=== PATIENT | female | born 1990 | race Caucasian/White ===

== ENCOUNTER → 2016-12-14 | Outpatient (CLI) | payer OTHER ==
[~2016-12-14] MED LIST: HYDR1INJ12; PRENTAB26 PO
[2016-12-14 18:11] LABS: URINE APPEARANCE CLEAR (CLEAR); URINE BILIRUBIN NEG (NEG); URINE COLOR YELLOW; URINE EPITHELIAL CELL AUTO >30 /lpf (0-5); URINE NITRITE NEG (NEG); URINE PH 6.5 (4.5-7.5); URINE SPECIFIC GRAVITY 1.007 (1.000-1.030); UROBILINOGEN NEG (NEG)
[2016-12-14 18:18] LABS: MANUAL MICROSCOPIC REQUIRED? NO; REVIEW REQ? YES
== END | disposition home or self-care (01) ==
LOC: C.LABSPEC 17:42
PROVIDERS: ATTEND Obstetrics & Gynecology
DX: O09.219 Supervision of pregnancy with history of pre-term labor, unspecified trimester (principal); Z3A.00 Weeks of gestation of pregnancy not specified

== ENCOUNTER → 2016-12-21 | Outpatient (CLI) | payer OTHER ==
[2016-12-21 16:56] LABS: BASO % 0.3 %; BASO ABS # 0.02 K/uL (0-0.2); COMPLETE YES; EOS % 1.6 %; HEMATOCRIT 36.9 % (37-47); IG% 0.3 %; LYMPH % 27.7 %; LYMPH ABS # 2.03 K/uL (1.2-3.4); MEAN CORPUSCULAR HGB CONC 32.5 g/dl (32-36); MEAN PLATELET VOLUME 11.6 fL (7.4-10.4); NEUT % 64.1 %; PLATELET COUNT 189 K/uL (130-400); RED BLOOD COUNT 4.29 M/uL (4.2-5.4); WHITE BLOOD COUNT 7.32 K/uL (4.8-10.8)
[2016-12-24 23:55] LABS: CHLAMYDIA TRACH RNA*** NOT DETECTED (NOT DETECTED); GC (NEIS GONORRHOEAE)RNA** NOT DETECTED (NOT DETECTED)
== END | disposition home or self-care (01) ==
LOC: C.LAB1850 15:21
PROVIDERS: ATTEND Obstetrics & Gynecology
DX: O09.211 Supervision of pregnancy with history of pre-term labor, first trimester (principal); Z3A.00 Weeks of gestation of pregnancy not specified

== ENCOUNTER → 2016-12-21 | Outpatient (CLI) | payer OTHER | END | disposition home or self-care (01) | LOC: C.PAPS 12:39 | PROVIDERS: ATTEND Obstetrics & Gynecology | DX: Z12.4 Encounter for screening for malignant neoplasm of cervix (principal); R87.616 Satisfactory cervical smear but lacking transformation zone ==

== ENCOUNTER → 2017-02-15 | Outpatient (CLI) | payer OTHER ==
[2017-02-15 13:30] LABS: GTGD 50 Grams
== END | disposition home or self-care (01) ==
LOC: C.LAB1850 11:05
PROVIDERS: ATTEND Obstetrics & Gynecology
DX: Z34.82 Encounter for supervision of other normal pregnancy, second trimester (principal)

== ENCOUNTER 2017-04-17 13:05 | Outpatient (CLI) | payer OTHER ==
[2017-04-17 14:49] LABS: URINE APPEARANCE CLEAR (CLEAR); URINE BILIRUBIN NEG (NEG); URINE COLOR YELLOW; URINE NITRITE NEG (NEG); URINE PH 6.5 (4.5-7.5); URINE SPECIFIC GRAVITY 1.017 (1.000-1.030); UROBILINOGEN NEG (NEG); ZZUR CULT IF INDIC CLEAN CATCH NO
[2017-04-17 14:51] LABS: MANUAL MICROSCOPIC REQUIRED? NO; REVIEW REQ? NO
== END 2017-04-17 15:10 | disposition home or self-care (01) ==
LOC: C.OPB 13:05 → C.LD 13:05 → C.OPB 15:10
PROVIDERS: ATTEND Obstetrics & Gynecology
DX: O99.89 Other specified diseases and conditions complicating pregnancy, childbirth and the puerperium (principal); R39.89 Other symptoms and signs involving the genitourinary system; Z3A.24 24 weeks gestation of pregnancy

== ENCOUNTER → 2017-05-07 | Outpatient (CLI) | payer OTHER ==
[2017-05-07 12:25] LABS: HEMATOCRIT 31.9 % (37-47)
[2017-05-07 13:14] LABS: GTGD 50 Grams
== END | disposition home or self-care (01) ==
LOC: C.LAB1850 10:55
PROVIDERS: ATTEND Obstetrics & Gynecology
DX: O09.212 Supervision of pregnancy with history of pre-term labor, second trimester (principal)

== ENCOUNTER → 2017-05-07 | Outpatient (CLI) | payer OTHER ==
[2017-05-07 14:54] LABS: URINE APPEARANCE CLEAR (CLEAR); URINE BILIRUBIN NEG (NEG); URINE COLOR YELLOW; URINE EPITHELIAL CELL AUTO 20-30 /lpf (0-5); URINE NITRITE NEG (NEG); UROBILINOGEN NEG (NEG)
[2017-05-07 15:10] LABS: MANUAL MICROSCOPIC REQUIRED? NO; REVIEW REQ? NO
== END | disposition home or self-care (01) ==
LOC: C.LABSPEC 14:10
PROVIDERS: ATTEND Obstetrics & Gynecology
DX: O09.212 Supervision of pregnancy with history of pre-term labor, second trimester (principal)

== ENCOUNTER 2017-06-29 10:09 | Outpatient (CLI) | payer OTHER ==
[2017-06-29] MEDS ORDERED: HYDR1INJ12 (11:08)
[2017-06-29] MEDS ORDERED: PRENTAB26 PO (11:08)
== END 2017-06-29 11:05 | disposition home or self-care (01) ==
LOC: C.OPB 10:09 → C.LD 10:09 → C.OPB 11:05
PROVIDERS: ATTEND Obstetrics & Gynecology
DX: O99.89 Other specified diseases and conditions complicating pregnancy, childbirth and the puerperium (principal); M54.9 Dorsalgia, unspecified; Z3A.34 34 weeks gestation of pregnancy

== ENCOUNTER 2017-07-22 10:10 | Outpatient (CLI) | payer OTHER ==
[~2017-07-22] VITALS: Ht 149.9 cm; Wt 67.2 kg
[2017-07-22 11:04] VITALS: Ht 149.9 cm; Wt 67.2 kg
== END 2017-07-22 12:14 | disposition home or self-care (01) ==
LOC: C.OPB 10:10 → C.LD 10:10 → C.OPB 12:14 → EDSTATUS 08-04 10:11
PROVIDERS: ATTEND Obstetrics & Gynecology
DX: Z34.83 Encounter for supervision of other normal pregnancy, third trimester (principal); Z3A.38 38 weeks gestation of pregnancy

== ENCOUNTER 2017-07-24 21:28 | Inpatient (IN) | payer OTHER ==
[~2017-07-24] VITALS: Ht 152.4 cm; Wt 78.5 kg
[2017-07-25] MEDS ORDERED: LACTATED RINGER'S 1000ML 1,000 ML IV PRN (00:31)
[2017-07-25] MEDS ORDERED: LACTATED RINGER'S 1000ML 1,000 ML IV SCH ×2 (00:31→05:55)
[2017-07-25 01:02] LABS: HEMATOCRIT 31.2 % (37-47); MEAN CELL VOLUME 83.2 fL (80-100); MEAN CORPUSCULAR HEMOGLOBIN 26.9 pg (25-34); MEAN CORPUSCULAR HGB CONC 32.4 g/dl (32-36); MEAN PLATELET VOLUME 10.9 fL (7.4-10.4); PLATELET COUNT 197 K/uL (130-400); RED BLOOD COUNT 3.75 M/uL (4.2-5.4); WHITE BLOOD COUNT 16.46 K/uL (4.8-10.8)
[2017-07-25] MEDS ORDERED: EpHEDrine SULFATE INJ 50 MG/ML AMP ONE (01:57)
[2017-07-25] MEDS ORDERED: BUPIVACAINE 0.25% 30 ML VIAL ONE (01:57)
[2017-07-25] MEDS ORDERED: FENTANYL 2MCG/ML ROPIV 1.25MG/ML 100ML BAG EPI ONE (01:58)
[2017-07-25] MEDS ORDERED: FENTANYL CITRATE INJ 50 MCG/1 ML 2 ML VIAL ONE (01:58)
[2017-07-25] MEDS ORDERED: LACTATED RINGER'S 1000ML 500 ML IV PRN (02:27)
[2017-07-25] MEDS ORDERED: NALOXONE HCL INJ 1 MG in SODIUM CHLORIDE 0.9% 1000ML 1,000 ML IV PRN ×4 (02:27)
[2017-07-25] MEDS ORDERED: METOCLOPRAMIDE HCL INJ 20 MG in SODIUM CHLORIDE 0.9% 50ML 50 ML IV PRN (02:30)
[2017-07-25] MEDS ORDERED: FENTANYL 2MCG/ML ROPIV 1.25MG/ML 100ML BAG EPI PRN (02:30)
[2017-07-25] MEDS ORDERED: PROMETHAZINE HCL INJ 25 MG in SODIUM CHLORIDE 0.9% 50ML 50 ML IV PRN (02:30)
[2017-07-25] MEDS ORDERED: ONDANSETRON INJ 2 MG/ML 2 ML VIAL IV PRN (02:30)
[2017-07-25] MEDS ORDERED: NALBUPHINE HCL INJ 10 MG/ML AMP IV PRN (02:30)
[2017-07-25] MEDS ORDERED: EpHEDrine SULFATE INJ 50 MG/ML AMP IV PRN (02:30)
[2017-07-25] MEDS ORDERED: DiphenhydrAMINE HCL 50 MG/ML VIAL IV PRN (02:30)
[2017-07-25] MEDS ORDERED: NALOXONE HCL INJ 0.4 MG/1 ML VIAL/CARP IV PRN (02:30)
[2017-07-25] MEDS ORDERED: OXYTOCIN 30 UNITS/500ML NSS IV ONE (05:35)
[2017-07-25] MEDS ORDERED: SUPERCREAM 0.870 % 15GM JAR EXT PRN (06:00)
[2017-07-25] MEDS ORDERED: LANOLIN OINT EXT PRN ×2 (06:00)
[2017-07-25] MEDS ORDERED: OXYTOCIN 30 UNITS/500ML NSS IV PRN (06:00)
[2017-07-25] MEDS ORDERED: DIPHTHERIA/TETANUS/PERTUSSIS 0.5 ML SYR/VIAL IM. ONE (06:00)
[2017-07-25] MEDS ORDERED: HYDROCORTISONE ACETATE 25 MG SUPP PR PRN (06:00)
[2017-07-25] MEDS ORDERED: OXYCODONE/ACETAMINOPHEN 5-325 TAB PO PRN (06:00)
[2017-07-25] MEDS ORDERED: BENZOCAINE 20% AER SPR 82.5 GM CAN EXT PRN (06:00)
--- NOTE | 2017-07-25 07:49 | Anesthesia Procedure Note ---
Anesthesia Epidural Removal Nt Date & Time Jul 25, 2017 at 07:48 Vital Signs Pain Intensity: 10.0 Notes Mental Status: alert / awake / arousable, participated in evaluation Nausea / Vomiting: adequately controlled Pain: adequately controlled Airway Patency, RR, SpO2: stable & adequate BP & HR: stable & adequate Hydration State: stable & adequate Neuraxial Anesthesia: was administered Anesthetic Complications: no major complications apparent, pt satisfied with anesthetic care Epidural: removed without complications, with tip intact
[2017-07-25] MEDS: ACETAMINOPHEN 325 MG TAB PO PRN ×3 (07:51→19:57)
[2017-07-25] MEDS: DOCUSATE SODIUM 100 MG CAP PO SCH ×2 (07:51→20:35)
[2017-07-25] MEDS: PRENATAL VITAMIN TAB PO SCH (07:51)
[2017-07-25 08:30] VITALS: BP 113/63; PULSE 83; TEMP 36.7
[2017-07-25 12:41] VITALS: BP 109/69; PULSE 63; TEMP 36.9
[2017-07-25] MEDS: IBUPROFEN 600 MG TAB PO PRN (15:27)
[2017-07-25 15:29] VITALS: BP 109/69; PULSE 63; TEMP 36.9
[2017-07-25 20:05] VITALS: BP 114/74; PULSE 76; TEMP 36.4
[2017-07-25 23:30] VITALS: BP 124/72; PULSE 87; TEMP 36.7
[2017-07-26 04:30] VITALS: BP 115/59; PULSE 80; TEMP 36.6
[2017-07-26 06:49] LABS: HEMATOCRIT 31.7 % (37-47)
--- NOTE | 2017-07-26 07:22 | Progress Note ---
Subjective Jul 26, 2017. Subjective conversation w/ patient, physical exam, chart review, lab review Ambulation: ambulating normally Voiding: no voiding problems Passing Gas: Yes Diet Tolerance: Regular Diet Lochia: Moderate Feeding Type: Breast Feeding Pain: controlled Review of Systems Respiratory: No shortness of breath Cardiac: No chest pain Abdomen: No nausea, No vomiting Female : No dysuria Objective Vital Signs Date Time Temp Pulse Resp B/P (MAP) Pulse Ox O2 Delivery O2 Flow Rate FiO2 07/26/17 04:30 36.6 80 18 115/59 (77) Room Air 07/25/17 23:30 36.7 87 18 124/72 (89) Room Air 07/25/17 23:30 Room Air 07/25/17 20:05 Room Air 07/25/17 20:05 36.4 76 18 114/74 (87) Room Air 07/25/17 15:29 36.9 63 16 109/69 (82) Room Air 07/25/17 12:41 36.9 63 16 109/69 (82) Room Air 07/25/17 08:30 36.7 83 20 113/63 Physical Exam General Appearance: WELL-APPEARING, WD/WN, NO APPARENT DISTRESS Respiratory/Chest: lungs clear, normal breath sounds, no respiratory distress Cardiovascular: regular rate, rhythm, no gallop Abdomen: normal bowel sounds, soft Fundus: Firm, Tender (appropriately tender), Relation to Umbilicus (1 below U) Extremities: non-tender, normal inspection Laboratory Results Last 24 Hours Test 07/26/17 06:34 Hemoglobin 10.3 g/dL Hematocrit 31.7 % Assessment and Plan Post- Day#: 1 Continue Routine Care: Vital signs reviewed and wnl. Hgb reviewed 10.1 on admission, (10.3 today). Blood type A -, GBS -, RI. Pt doing well clinically. Encourage ambulation, . Resume regular diet. Control pain with motrin/tylenol. Monitor lochia. Continue routine post care. Baby will get tongue tie clipped tomorrow, anticipate discharge tomorrow. SILVIA DHILLON FMR PGY 1. Resident Physician Supervision Note: I interviewed and examined the patient. Discussed with Dr. Dhillon and agree with findings and plan as documented in the note. Any exceptions or clarifications are listed here: [None] Documented By: Glen Jeronimo Resident Tracking Resident Involvement: Resident Care Provided Care Provided: OB Delivery
[2017-07-26] MEDS: PRENATAL VITAMIN TAB PO SCH (07:46)
[2017-07-26] MEDS: DOCUSATE SODIUM 100 MG CAP PO SCH ×2 (07:46→20:00)
[2017-07-26] MEDS: ACETAMINOPHEN 325 MG TAB PO PRN ×2 (07:48→16:27)
[2017-07-26 08:00] VITALS: BP 113/77; PULSE 83; TEMP 36.7
[2017-07-26] MEDS: IBUPROFEN 600 MG TAB PO PRN (12:11)
[2017-07-26 16:50] VITALS: BP 125/68; PULSE 82; TEMP 36.8
[2017-07-27 00:10] VITALS: BP 118/59; PULSE 91; TEMP 36.9; O2SAT 99
--- NOTE | 2017-07-27 07:24 | Progress Note ---
Subjective Jul 27, 2017. Subjective conversation w/ patient, physical exam, chart review, lab review Ambulation: ambulating normally Voiding: no voiding problems Passing Gas: Yes Diet Tolerance: Regular Diet Lochia: Moderate Feeding Type: Breast Feeding Pain: controlled Review of Systems Respiratory: No shortness of breath Abdomen: No nausea, No vomiting Female : No dysuria Objective Vital Signs Date Time Temp Pulse Resp B/P (MAP) Pulse Ox O2 Delivery O2 Flow Rate FiO2 07/27/17 00:10 36.9 91 16 118/59 (78) 99 Room Air 07/27/17 00:10 Room Air 07/26/17 16:53 Room Air 07/26/17 16:50 36.8 82 18 125/68 (87) Room Air 07/26/17 08:00 Room Air 07/26/17 08:00 36.7 83 18 113/77 (89) Room Air Physical Exam General Appearance: WELL-APPEARING, WD/WN, NO APPARENT DISTRESS Respiratory/Chest: lungs clear, normal breath sounds, no respiratory distress Cardiovascular: regular rate, rhythm, no gallop Abdomen: normal bowel sounds, soft Fundus: Firm, Tender (appropriately tender), Relation to Umbilicus (2 below U) Extremities: non-tender, normal inspection Assessment and Plan Post- Day#: 2 Continue Routine Care: Vital signs reviewed and wnl. Hgb reviewed 10.1 on admission, (10.3 yesterday). Stable. Blood type A -, GBS -, RI. Pt doing well clinically. Encourage ambulation, . Resume regular diet. Control pain with motrin/tylenol. Monitor lochia. Continue routine post care. Baby will get tongue tie clipped today, anticipate discharge later today. Discussed dc instructions. SILVIA DHILLON FMR PGY 1. Resident Physician Supervision Note: I interviewed and examined the patient. Discussed with Dr. Dhillon and agree with findings and plan as documented in the note. Any exceptions or clarifications are listed here: D/C instructions given, f/u in 6 weeks Documented By: Armand Causey Resident Tracking Resident Involvement: Resident Care Provided Care Provided: OB Delivery
--- NOTE | 2017-07-27 07:26 | Discharge Instructions ---
Discharge Instructions Date of Service Jul 27, 2017. Admission Reason for Admission: LABOR Discharge Discharge Diagnosis / Problem: Spontaneous Vaginal Delivery Discharge Goals Goal(s): Routine recovery after delivery Medications Continue Dispensed Medications: supercream, dermaplast, tucks, lansinoh Activity Recommendations Activity Limitations: per Instructions/Follow-up section . Instructions / Follow-Up Instructions / Follow-Up ACTIVITY RECOMMENDATIONS: * Gradual return to full activity over the next 2-3 weeks. * No lifting - nothing heavier than baby over the next 2-3 weeks. * Do not engage in vigorous exercise, sexual activity or sports until cleared by your physician. * Do not drive or operate any motorized equipment until cleared by your physician. * You may shower/bathe daily. MEDICATIONS: For discomfort or pain, you may use Acetaminophen (Tylenol), Ibuprofen (Advil), or Naproxen (Aleve) following the package directions. For constipation you may use Colace following the package directions. BREAST CARE: If you are not breast feeding: * Wear a supportive bra 24 hours a day for one to two weeks. * Avoid stimulating your breasts and nipples as much as possible during the first few weeks after delivery. * When taking a shower, have the warm water hit your back, not breasts. * When your breasts feel full, apply ice packs. Usually three to four times a day helps ease the discomfort. * Take a mild pain medication (Tylenol / Motrin) when you are uncomfortable. If breast feeding: * Use breast milk to lubricate nipples. Lansinoh cream may be used for sore nipples. You do not need to remove cream prior to breast feeding. If using a different brand of cream, check the label for directions regarding removal of cream prior to nursing. * Wear a supportive bra. * If having problems with breasts or breast feeding, call a professional services consultant or your health care provider. EPISIOTOMY CARE: After delivery, if you have an episiotomy (stitches), the following steps will ease discomfort and aid healing. * For the first 24 hours after delivery, place ice packs next to your episiotomy to help reduce swelling. * After the first 24 hour-period, sitz baths, either portable or in the tub, are suggested. A shower with a shower arm sprayed over the episiotomy may be comforting. * Qian care should be done after each voiding and bowel movement. Squirt warm water from a plastic bottle over the perineum (region of the body between the anus and urinary opening) and pat dry. * Use Dermoplast to ease discomfort. Shake container. Willard directly over the episiotomy. Place a Tucks on a clean sanitary pad next to your episiotomy. SPECIAL CARE INSTRUCTIONS: When you are discharged from the hospital, it is important for you to follow the instructions listed below: * During the first week at home, you should be able to care for yourself and your baby. In addition, the usual light household activities are encouraged. * Limit your activities to the way you feel. Do not try to clean the house or move furniture. Be sensible. * If you actively engage in sports and have done so up until the time of your delivery, you may resume these activities as soon as you feel able. This may take up to one month or even longer. Use good judgment. * Continue to take your vitamins for at least six weeks after the of your baby. * Your diet need not be limited unless you were on a special diet before your delivery. Breast-feeding mothers need around 2500 calories per day and at least 64-80 ounces of fluid per day (8 to 10 glasses). * You should eat foods from the four major food groups. Crash diets or fad diets are to be avoided. Eating lean meats, fresh fruits and vegetables, low-fat dairy products, high fiber foods and a regular exercise program, will help you get back to your pre- weight without putting your health at risk. * Constipation is sometimes a problem after delivery. Take a mild laxative as needed. If breast feeding, Milk of Magnesia is acceptable to use. You may use a suppository or Fleets enema if no episiotomy. * A daily shower or tub bath is suggested. Be sure to thoroughly and gently dry the perineum. * A bloody vaginal discharge will usually continue until around four weeks post . A small amount of bleeding may continue for as long as six weeks. Vaginal discharge changes from the bright red bleeding after delivery to pink then brownish and finally yellowish-pink before becoming white and disappearing. * Bleeding may increase with activity. Your first period may come in 4-8 weeks. If you are breast feeding, your period may be delayed even longer. * Walls (sex) can begin whenever both you and your partner feel comfortable and do not have any form of genital infection. It is recommended that you wait at least six weeks for internal and external healing to occur. If you have questions, please talk to your health care practitioner. A condom should be used to prevent infection and . * Foreplay, gentle intercourse and lubrication is very important the first several times to prevent pain. A water-based lubricant such as K-Y jelly or Astroglide may be used. * If you have RH negative blood and your baby is RH positive, you will receive RHOGAM by injection prior to discharge. The nurse will give you a card to keep with you that has the date and place that you received RHOGAM after delivery. * During your care, you had a Rubella screen done to check for the presence of rubella antibodies in your blood. If your test was negative, you will receive a Rubella vaccine prior to discharge. This vaccine may cause a fever, soreness at the injection site and flu-like symptoms. If these symptoms persist, notify your health care practitioner. is not advised for one month after a Rubella vaccine. * Verbalizes understanding of car seat law as reviewed with patient nursing. * Car Seat hand-out given and reviewed with patient by nursing. * Shaken baby information reviewed with patient by nursing. Call you doctor if: * Heavy bleeding (saturating several pads an hour) or passing clots the size of your fist. * A fever >101 degrees F (38.3 degrees C) on two occasions four hours apart and /or chills. * Unusual pain in the pelvic or vaginal areas. * "Baby Blues" lasting longer than two weeks. If you have any questions or concerns, call your health care practitioner at . FOLLOW UP VISIT: * Please call the office at to schedule a 6 week examination. It is important you keep this appointment. It is important for you to make arrangements for either yearly or twice yearly check-ups thereafter. Current Hospital Diet Patient's current hospital diet: Regular OB Diet Discharge Diet Recommended Diet: Regular Diet Pending Studies Studies pending at discharge: no Medical Emergencies . Who to Call and When: Medical Emergencies: If at any time you feel your situation is an emergency, please call 911 immediately. . Non-Emergent Contact Non-Emergency issues call your: Primary Care Provider . . "Provider Documentation" section prepared by Leslie Dhillon. . VTE Core Measure Inpt VTE Proph given/why not?: Treatment not indicated
[2017-07-27 08:00] VITALS: BP 107/68; PULSE 84; TEMP 37.1
[2017-07-27] MEDS: DOCUSATE SODIUM 100 MG CAP PO SCH (08:19)
[2017-07-27] MEDS: PRENATAL VITAMIN TAB PO SCH (08:19)
[2017-07-27 12:18] VITALS: BP_DIAS 68; PULSE 84; TEMP 37.1
--- NOTE | 2017-07-30 10:36 | Discharge Summary ---
Discharge Summary Date of Service Jul 30, 2017. Discharge Summary Admission Date: Jul 25, 2017 at 00:32 Discharge Date: Jul 27, 2017 Discharge Disposition: Home Principal Diagnosis: Vaginal delivery Problems/Secondary Diagnoses: (1) No chronic past medical history Status: Chronic Immunizations: Have You Had Influenza Vaccine: Unknown History of Tetanus Vaccine?: No Medication Reconciliation Continued Medications: Multivit/Min/Iron/Fol Ac/Pren ( Vitamin) Tab 1 TAB PO DAILY, TAB Discontinued Medications: Hydroxyprogesterone Caproate (Bridget) 250 Mg/Ml Inj WK Hospital Course Total Time Spent: Less than 30 minutes This includes examination of the patient, discharge planning, medication reconciliation, and communication with other providers. Discharge Instructions Please refer to the electronic Patient Visit Report (Discharge Instructions) for additional information.
--- NOTE | 2017-08-06 06:53 | Vaginal Delivery Summary ---
Vaginal Delivery Summary Kerri underwent a normal spontaneous vaginal delivery. Dictated report under separate cover. Following delivery both she and the were in stable condition and lochia was minimal.
== END 2017-07-27 12:50 | disposition home or self-care (01) | DRG 775 ==
LOC: C.OPB 21:28 → C.LD 21:28 → C.OPB 07-25 00:33 → C.OBG 07-25 08:47
PROVIDERS: ADMIT Obstetrics & Gynecology; ATTEND Obstetrics & Gynecology
PROC: 10E0XZZ Delivery of Products of Conception, External Approach (ICD-10-PCS; principal; 2017-07-25)
DX: O80 Encounter for full-term uncomplicated delivery (principal); Z3A.38 38 weeks gestation of pregnancy; Z37.0 Single live birth

== ENCOUNTER 2020-03-17 11:28 | Inpatient (IN) ==
--- NOTE | 2020-03-17 15:28 | Ultrasound Report ---
Study: biophysical profile HISTORY:: Decreased movement. COMPARISON: None. Amniotic fluid index 13.5 cm. Tone and breathing were not appreciated. Movement was appreciated. the fetus is cephalic in presentation. heart is 1 25 bpm. IMPRESSION: biophysical profile 4 out of a possible 8. Electronically signed by: Elliott Pride M.D. 03/17/2020 3:26 PM
[2020-03-17] MEDS ORDERED: OXYTOCIN 30 UNITS/500 ML BAG IV PRN ×2 (15:48→18:55)
[2020-03-17] MEDS ORDERED: PENICILLIN G POTASSIUM 6 MU in DEXTROSE 5% 250 ML IV STA (15:48)
--- NOTE | 2020-03-17 16:04 | History & Physical Report ---
Date of Service March 17, 2020 Assessment & Plan Admission and Anticipated Discharge Date Admission Date: March 17, 2020 IUP at 40 weeks with decreased movement and 6/10 BPP. will start PCN G now and AROM after 2nd dose is started patient will want epidural analgesia anticipate vaginal History of Present Illness Primary Care Provider: Indu Hameed DO patient is a 29 yo white female EDC 03/17/20 at 40 weeks who presents from the office with a chief complaint of decreased movement and a marginally reactive NST. On arrival in L&D, prolonged monitoring was done and had reassuring Category 1 tracing. However, BPP was 4/8- no breathing or tone present but there was gross movement. MAXWELL is 13.5. Because of the BPP results and now patient is armin every 7-8 minutes with cervical change. GBS positive. Blood type- A negative. Allergies Allergy/AdvReac Type Severity Reaction Status Date / Time naproxen Allergy Mild NUMBNESS Verified 03/17/20 10:27 ON 1 SIDE OF FACE Home Medications Home Medications Medication Instructions Recorded Confirmed Type prenat.vits,susie,[id number] 1 tab PO DAILY 07/29/19 03/17/20 History Patient History Medical History Bacterial vaginosis Depression Depression History of varicella Hx of migraines Hx of varicella Puerperal endometritis (spontaneous vaginal delivery) Velamentous insertion of umbilical cord Surgical History H/O oral surgery [place] teeth extracted Family History Other Diabetes FHx: thromboembolic disease Hypertension Social History Preferred Language: Cook Islander Communication Ability: Effective Physical Scientist Required: No Beliefs That Will Affect Care: None marital status: marital status details: Nawaf Smith (22) [phone] Current Living Situation: Family Current Living Situation Comment: Lives at home with and children current occupational status: unemployed current occupation: homemaker Feels Safe at Home: Yes Safety Concerns: Feels Safe At This Time Smoking Status: Never smoker Tobacco Type: cigarettes ; Do You Dip or Chew Tobacco: No ; Second Hand Exposure: Yes ; Hx Alcohol Use: No Hx Substance Use: No Review of Systems All systems reviewed & are unremarkable except as noted in HPI & below Physical Exam Constitutional: WD/WN, vitals as above Respiratory: normal respiratory effort, lungs clear to auscultation Cardiovascular: RRR, no murmur, no edema Gastrointestinal (Abdomen): normal bowel sounds, soft, nontender, no hepatosplenomegaly Psychiatric: A+Ox3, euthymic affect Genitourinary: OB Exam Abdomen: + vertex and + regular contractions (7-8 minutes) Manual OB Exam: + cervical dilation 4 cm (4-5 cm soft), + cervical effacement 70% and + station -2 OB Exam Monitor Tracing: + external FHT monitor used, + external uterine monitor used, + category I and + normal FHT variability Results & Data ([facility]) Vital Signs (Past 12 Hours) Vital Signs Temp Pulse Resp BP 03/17/20 15:35 98.8 F 76 20 122/59 L 03/17/20 14:26 73 123/70 03/17/20 11:51 98.2 F 78 18 120/76 03/17/20 11:35 78 120/76 Code Status & VTE Plan VTE Prophylaxis Plan VTE Prophylaxis will be ordered: No Coding Level of Care Code None
[2020-03-17] MEDS: LACTATED RINGER'S 1,000 ML IV PRN ×2 (16:28→22:35)
[2020-03-17 17:13] LABS: Hematocrit (blood only) 31.5 % (37-47); Mean Corpuscular Hemoglobin 26.3 pg (25-34); Mean Corpuscular Volume 82.9 fL (80-100); Mean Platelet Volume 12.7 fL (7.4-10.4); Nucleated RBC # (auto) 0.02 K/uL (0-0); Nucleated RBC % (auto) 0.1 %; Platelet Count 216 K/uL (130-400); RDW Coefficient of Variation 15.1 % (11.5-14.5); RDW Standard Deviation 44.7 fL (36.4-46.3); White Blood Count 14.81 K/uL (4.8-10.8)
[2020-03-17 17:15] LABS: Mean Corpuscular Hgb Conc 31.7 g/dL (32-36)
[2020-03-17] MEDS: PENICILLIN G POTASSIUM 3 MU in DEXTROSE 5% 100 ML IV PRN (20:22)
[2020-03-17] MEDS ORDERED: DiphenhydrAMINE HCL 50 MG/ML VIAL IV PRN (20:54)
[2020-03-17] MEDS ORDERED: ePHEDrine sulfate 50 MG/ML AMP IV PRN (20:54)
[2020-03-17] MEDS ORDERED: NALOXONE HCL 0.4 MG/1 ML VIAL/CARP IV PRN (20:54)
[2020-03-17] MEDS ORDERED: NALOXONE HCL 1 MG in SODIUM CHLORIDE 0.9% 1000ML 1,000 ML IV PRN (20:54)
[2020-03-17] MEDS ORDERED: fentaNYL 2MCG/ML ROPIV 1.25MG/ML 100 ML BAG EPI PRN (20:54)
--- NOTE | 2020-03-17 20:54 | Anesthesiology Consultation ---
Date of Service March 17, 2020 Assessment & Plan (1) Encounter for pre-operative examination: Chart Review Chart Review: Patient NOT seen in Pre Admission Testing and Acceptable Risk for Labor Epidural Consults Requested none ASA ASA2 Proposed Anesthesia Anesthesia Type: Labor Epidural Risk / Benefits Reviewed With: PT / POA / Parent / Guardian, Accepts Plan and Informed Consent Obtained History Height/Weight Weight: 74.843 kg Allergies Allergy/AdvReac Type Severity Reaction Status Date / Time naproxen Allergy Mild NUMBNESS Verified 03/17/20 10:27 ON 1 SIDE OF FACE Medications Home Medications Medication Instructions Recorded Confirmed Last Taken prenat.vits,susie,[id number] 1 tab PO DAILY 07/29/19 03/17/20 03/16/20 13:00 Active Medications Generic Name Dose Route Start Last Admin Trade Name Freq PRN Reason Stop Dose Admin Lactated Ringer's 1,000 mls @ 125 mls/hr 03/17/20 15:48 03/17/20 18:51 Lr IV 03/19/20 15:47 125 mls/hr .Q8H PRN Infusion L&D Protocol Protocol Penicillin G Potassium 3 mu/ 106 mls @ 100 mls/hr 03/17/20 15:48 03/17/20 20:22 Dextrose IV 03/27/20 15:47 100 mls/hr Q4H PRN Administration Give until delivery Oxytocin 30 units in 500 mls @ 1 mls/hr 03/17/20 18:55 03/17/20 19:19 Pitocin IV 03/19/20 18:54 0.06 units/hr .Q24H PRN 1 mls/hr Labor Induction/Augmentation Administration Protocol 0.06 UNITS/HR NPO Date Last Intake of Fluids: 03/17/20 Time Last Intake of Fluids: 17:00 Date Last Intake of Solids: 03/17/20 Time Last Intake of Solids: 06:00 Past Medical History Medical History Bacterial vaginosis Depression Depression History of varicella Hx of migraines Hx of varicella Puerperal endometritis (spontaneous vaginal delivery) Velamentous insertion of umbilical cord Exercise / Class Metabolic Activity II 4-5 Yardwork/Stairs/Walk up hill Past Family History Family History Other Diabetes FHx: thromboembolic disease Hypertension Past Surgical History Surgical History H/O oral surgery [place] teeth extracted Past Anesthesia History No Hx of Anesthesia Complications and No Family Hx of Anesthesia Complications History of PONV No Hx of PONV and No Hx of Motion Sickness Social History Smoking Status: Never smoker tobacco type: cigarettes Do You Dip or Chew Tobacco: No Hx Alcohol Use: No Hx Substance Use: No substance use type: does not use Physical Exam Vital Signs Last Vital Signs Temp 36.3 C L 03/17/20 19:07 Pulse 75 03/17/20 19:04 Resp 18 03/17/20 19:07 BP 120/71 03/17/20 19:04 ENMT Mouth: no dentition abnormality Thyromental Distance: > or= 3.5 Finger Breadths Mallampati Class: II Neck normal visual inspection Respiratory normal respiratory effort Auscultation: lungs clear to auscultation bilaterally Cardiovascular Rate/Rhythm: regular rate and regular rhythm Psychiatric Orientation: alert Testing Laboratory Results 03/17/20 15:57
[2020-03-17] MEDS ORDERED: ePHEDrine sulfate 50 MG/ML AMP ONE (21:22)
[2020-03-17] MEDS ORDERED: BUPIVACAINE 0.25% 30 ML VIAL ONE (21:22)
[2020-03-17] MEDS ORDERED: fentaNYL 2MCG/ML ROPIV 1.25MG/ML 100 ML BAG EPI ONE (21:23)
[2020-03-17] MEDS ORDERED: fentaNYL citrate 100 MCG/2 ML VIAL ONE (21:23)
[2020-03-18] MEDS: PENICILLIN G POTASSIUM 3 MU in DEXTROSE 5% 100 ML IV PRN (00:11)
[2020-03-18] MEDS ORDERED: DIPHTHERIA/TETANUS/PERTUSSIS 0.5 ML SYR/VIAL IM ONE (01:02)
[2020-03-18] MEDS ORDERED: OXYCODONE/ACETAMINOPHEN 5mg/325mg TAB PO PRN (01:02)
[2020-03-18] MEDS ORDERED: OXYTOCIN 30 UNITS/500 ML BAG IV PRN (01:02)
[2020-03-18] MEDS ORDERED: SUPERCREAM 0.870% 15 GM JAR EXT PRN (01:02)
[2020-03-18] MEDS ORDERED: bisacodyL 10 MG SUPP PR PRN (01:02)
[2020-03-18] MEDS ORDERED: HYDROCORTISONE ACETATE 25 MG SUPP PR PRN (01:02)
[2020-03-18] MEDS ORDERED: ACETAMINOPHEN 325 MG TAB PO PRN (01:02)
[2020-03-18] MEDS ORDERED: BENZOCAINE 20% AER SPR 82.5 GM CAN EXT PRN (01:02)
--- NOTE | 2020-03-18 02:29 | Delivery Summary ---
DATE OF OPERATION: 03/18/2020 The patient is a 29-year-old 4, para 3-0-0-3 white female who presented for regular visit at the office on 03/17/2020 with a marginally reactive NST. The patient stated that there was virtually no movement. She was sent to labor and delivery for further evaluation. monitoring revealed category 1 tracing. A biophysical profile was done to further evaluate well being and it was 4 out of 8, because she was 40 weeks with a 4 out of 8 biophysical profile, it was felt prudent to proceed with induction. She is GBS positive. She received 2 doses of penicillin prior to rupturing membranes. She received effective epidural analgesia and progressed to full dilation, where she pushed effectively over intact perineum for delivery of a viable female infant. The was placed on the mother's abdomen for further attention and drying after delivery. There was vigorous crying and the infant was moving all 4 limbs. The cord was clamped and cut after approximately 1 minute of life. The placenta was expressed intact with a 3-vessel cord after obtaining cord blood sample. There was no perineal lacerations except for several small superficial abrasions. Estimated blood loss was 200 mL. Mother and were doing well after delivery. I attest to the content of the Intraoperative Record and any orders documented therein. Any exceptions are noted below. MTDD
[2020-03-18] MEDS: IBUPROFEN 600 MG TAB PO PRN ×3 (04:03→12:23)
--- NOTE | 2020-03-18 07:27 | Anesthesia Procedure Note ---
Date of Service March 18, 2020 Anesthesia Post Epidural Note Vital Signs Vital Signs: Temp Pulse Resp BP Pulse Ox 36.8 C 94 H 20 115/65 100 03/18/20 03:30 03/18/20 03:30 03/18/20 03:30 03/18/20 03:30 03/18/20 00:50 Notes Mental Status: alert / awake / arousable and participated in evaluation Nausea / Vomiting: adequately controlled Pain: adequately controlled Airway Patency, RR, SpO2: stable & adequate BP & HR: stable & adequate Hydration State: stable & adequate Neuraxial Anesthesia: was administered and sensory block is resolving Anesthetic Complications: no major complications apparent and Pt Satisfied with anesthetic care Epidural: Removed without complications and With tip intact
[2020-03-18] MEDS: PRENATAL VITAMIN 1 TAB PO SCH (08:21)
[2020-03-18] MEDS: DOCUSATE SODIUM 100 MG CAP PO SCH ×2 (08:21→20:28)
--- NOTE | 2020-03-18 09:39 | Obstetrical Progress Note ---
Date of Service March 18, 2020 Assessment & Plan (1) Encounter for care and examination after delivery: satisfactory progress continue current care plan Day #:: 1 Subjective Ambulation: ambulating normally Voiding: no voiding problems Passing Gas:: Yes Diet Tolerance:: regular diet Feeding Type:: breast feeding Review of Systems All systems reviewed & are unremarkable except as noted in HPI & below Physical Exam Constitutional WD/WN, vitals as above Psychiatric A+Ox3, euthymic affect Genitourinary OB Exam Abdomen: + fundal height Fundus: + firm and + relation to umbilicus (at U) Results & Data ([facility]) Vital Signs (Past 12 Hours) Vital Signs Temp Pulse Pulse Resp BP BP Pulse Ox 03/18/20 03:30 98.2 F 94 H 20 115/65 03/18/20 03:00 18 03/18/20 02:58 81 106/64 03/18/20 02:45 89 127/77 03/18/20 02:30 98.6 F 18 03/18/20 02:25 75 109/64 03/18/20 02:00 18 03/18/20 01:57 75 117/62 03/18/20 01:45 18 03/18/20 01:37 93 H 124/74 03/18/20 01:30 18 03/18/20 01:27 85 122/69 03/18/20 01:17 74 124/68 03/18/20 01:15 18 03/18/20 01:08 81 116/66 03/18/20 01:00 18 03/18/20 00:58 76 122/56 L 03/18/20 00:50 79 100 03/18/20 00:45 96 H 100 03/18/20 00:43 106 H 88 L 03/18/20 00:40 74 99 03/18/20 00:36 75 91 03/18/20 00:35 85 100 03/18/20 00:30 83 99 03/18/20 00:26 62 97/55 L 03/18/20 00:25 71 99 03/18/20 00:21 67 105/58 L 03/18/20 00:20 67 99 03/18/20 00:16 63 106/63 03/18/20 00:15 69 99 03/18/20 00:10 64 97/58 L 99 03/18/20 00:08 70 95/56 L 03/18/20 00:06 65 92/55 L 03/18/20 00:05 67 93/52 L 100 03/18/20 00:00 67 99 03/17/20 23:57 74 115/60 03/17/20 23:55 80 99 03/17/20 23:50 81 99 03/17/20 23:45 78 97 03/17/20 23:42 75 108/70 03/17/20 23:40 87 98 03/17/20 23:35 79 98 03/17/20 23:30 79 98 03/17/20 23:26 90 101/58 L 03/17/20 23:25 80 97 03/17/20 23:20 89 98 03/17/20 23:15 84 18 98 03/17/20 23:11 78 107/59 L 03/17/20 23:10 84 98 03/17/20 23:05 88 99 03/17/20 23:01 18 03/17/20 23:00 80 99 03/17/20 22:58 70 116/67 03/17/20 22:55 73 98 03/17/20 22:50 98 H 99 03/17/20 22:45 70 98 03/17/20 22:41 70 111/67 03/17/20 22:40 73 18 98 03/17/20 22:35 74 99 03/17/20 22:30 76 100 03/17/20 22:25 75 18 120/67 03/17/20 22:24 73 112/60 03/17/20 22:23 73 99 03/17/20 22:21 83 131/74 03/17/20 22:20 18 03/17/20 22:18 84 125/72 100 03/17/20 22:15 98.4 F 18 03/17/20 22:13 78 99 03/17/20 22:08 73 98
[2020-03-19] MEDS: IBUPROFEN 600 MG TAB PO PRN ×2 (00:08→08:19)
--- NOTE | 2020-03-19 06:36 | Obstetrical Progress Note ---
Date of Service <Travis Hester MD - Last Filed: 03/19/20 06:50> March 19, 2020 Assessment & Plan <Travis Hester MD - Last Filed: 03/19/20 06:50> (1) : - Feels well today. Eating well, voiding well, ambulating well. - Pain well controlled with analgesics. - Routine care - After discharge will have 6 week followup. Weeks of gestation: 21 weeks Qualified Code(s): Z3A.21 - 21 weeks gestation of Subjective <Travis Hester MD - Last Filed: 03/19/20 06:50> Kerri is a 29 y/o female ; PPD #1 following spontaneous vaginal delivery at 40 weeks; doing well this morning; light abdominal cramping & 4/10 pain well managed on analgesics; voiding well; tolerating meals overnight and able to ambulate some; some persistent spotting with some improvement this morning. Review of Systems Constitutional: denies fever, chills, sweat, headache Respiratory: denies shortness of breath, difficulty breathing Cardiac: denies chest pain, palpitations, chest pressure Breast: denies breast pain : denies dysuria Physical Exam <Travis Hester MD - Last Filed: 03/19/20 06:50> General: Alert, oriented. No acute distress. Cardiac: Regular rate and rhythm, no murmurs/rubs/gallops. Respiratory: Clear to auscultation bilaterally a/p, no wheezes/rales/rhonchi. No increased work of breathing. Symmetrical chest rise. No respiratory distress. Abdomen: Soft, nontender, nondistended. Bowel sounds present. Uterus: Uterine fundus firm, palpable 1cm below umbilicus. Lower Extremities: No lower extremity edema or swelling. No deep calf pain. Bebe's negative bilaterally. Results & Data <Travis Hester MD - Last Filed: 03/19/20 06:50> Vital Signs (Past 12 Hours) Vital Signs Temp Pulse Resp BP Pulse Ox 03/19/20 00:00 36.5 C 76 18 124/72 03/18/20 20:23 36.7 C 63 16 117/80 98 <Annette Levy DO - Last Filed: 03/19/20 08:03> Co-Signing Physician Notes Resident Physician Supervision Note: I was present with Dr. Miller during the history and exam. I discussed the case with the resident and agree with the findings and plan as documented in the note. Any exceptions or clarifications are listed here: PPD#1, doing well, desires DC home. Reviewed DC instructions. Followup office 6w. Documented By: Annette Levy DO Resident Activity Tracking <Travis Hester MD - Last Filed: 03/19/20 06:50> Resident Involvement: Resident Care Provided Care Provided: OB Delivery
[2020-03-19 07:59] LABS: Hematocrit (blood only) 27.9 % (37-47); Hemoglobin 9.1 g/dL (12.0-16.0); Mean Corpuscular Hemoglobin 27.3 pg (25-34); Mean Corpuscular Hgb Conc 32.6 g/dL (32-36); Mean Corpuscular Volume 83.8 fL (80-100); Mean Platelet Volume 11.9 fL (7.4-10.4); Platelet Count 166 K/uL (130-400); RDW Coefficient of Variation 15.3 % (11.5-14.5); RDW Standard Deviation 46.8 fL (36.4-46.3); Red Blood Count 3.33 M/uL (4.2-5.4); White Blood Count 12.17 K/uL (4.8-10.8)
[2020-03-19] MEDS: DOCUSATE SODIUM 100 MG CAP PO SCH (08:17)
[2020-03-19] MEDS: PRENATAL VITAMIN 1 TAB PO SCH (08:17)
[2020-03-19] MEDS ORDERED: bisacodyL 5 MG TABEC PO SCH (20:00)
== END 2020-03-19 14:25 | disposition home or self-care (01) | DRG 807 ==
LOC: OPB 11:28 → 4S1 11:30 → 4S2 03-18 03:24